=== PATIENT | female | born 1965 | race Caucasian/White ===

== ENCOUNTER 2023-03-15 10:46 | Day surgery (SDC) | payer BC, SELFPAY ==
--- NOTE | 2023-03-15 10:50 | US_ITS ---
The [address] [address] Patient Name: JOSUÉ REGALAOD MRN: [id number] date: 1965 Sex: F Assigned Patient Location: US Current Patient Location: US Accession/Order Number: [id number] Exam Date: 03/15/2023 11:04 Report Date: 03/15/2023 12:51 At the request of: KARI RIVERA Procedure: US biopsy thyroid EXAMINATION: US biopsy thyroid, US biopsy FNA add lesion HISTORY: Thyroid Nodule COMPARISON: No relevant comparison available. TECHNIQUE: After obtaining informed consent, an ultrasound-guided biopsy was performed in the usual sterile manner. FINDINGS Nodule #1: IMAGIN cm peripherally calcified right lower lobe nodule BIOPSY NEEDLE: 2 inch 25-gauge SPECIMEN TYPE, #, LOCATION: 3 fine-needle aspirates MEDICATION: 2 cc 1% buffered lidocaine COMPLICATIONS: None. LABORATORY: Pathology and cytogenetics OTHER: Negative. FINDINGS Nodule #2: IMAGIN cm right mid to lower lobe nodule BIOPSY NEEDLE: 2 inch 25-gauge SPECIMEN TYPE, #, LOCATION: 4 fine-needle aspirates MEDICATION: 2 cc 1% buffered lidocaine COMPLICATIONS: None. LABORATORY: Pathology and cytogenetics OTHER: Negative. US/US biopsy thyroid IMPRESSION: Uneventful ultrasound guided biopsy of 2 separate right thyroid nodules. The patient was instructed to obtain follow up care and biopsy results from the referring physician. Electronically authenticated by: SOFIYA LUJAN Date: 03/15/2023 12:51
[2023-03-15 11:05] VITALS: BP 138/85; PULSE 59; O2SAT 93
[2023-03-15] MEDS: LIDOCAINE HCL 10 ML, SODIUM BICARBONATE 1 MEQ INJ (11:55)
--- NOTE | 2023-03-15 12:12 | US_ITS ---
The [address] [address] Patient Name: JOSUÉ REGALADO MRN: [id number] date: 1965 Sex: F Assigned Patient Location: US Current Patient Location: US Accession/Order Number: [id number] Exam Date: 03/15/2023 11:04 Report Date: 03/15/2023 12:51 At the request of: KARI RIVERA Procedure: US biopsy FNA add lesion EXAMINATION: US biopsy thyroid, US biopsy FNA add lesion HISTORY: Thyroid Nodule COMPARISON: No relevant comparison available. TECHNIQUE: After obtaining informed consent, an ultrasound-guided biopsy was performed in the usual sterile manner. FINDINGS Nodule #1: IMAGIN cm peripherally calcified right lower lobe nodule BIOPSY NEEDLE: 2 inch 25-gauge SPECIMEN TYPE, #, LOCATION: 3 fine-needle aspirates MEDICATION: 2 cc 1% buffered lidocaine COMPLICATIONS: None. LABORATORY: Pathology and cytogenetics OTHER: Negative. FINDINGS Nodule #2: IMAGIN cm right mid to lower lobe nodule BIOPSY NEEDLE: 2 inch 25-gauge SPECIMEN TYPE, #, LOCATION: 4 fine-needle aspirates MEDICATION: 2 cc 1% buffered lidocaine COMPLICATIONS: None. LABORATORY: Pathology and cytogenetics OTHER: Negative. US/US biopsy FNA add lesion IMPRESSION: Uneventful ultrasound guided biopsy of 2 separate right thyroid nodules. The patient was instructed to obtain follow up care and biopsy results from the referring physician. Electronically authenticated by: SOFIYA LUJAN Date: 03/15/2023 12:51
== END 2023-03-15 12:20 | disposition home or self-care (01) ==
LOC: US 10:47
PROVIDERS: Radiology Diagnostic Radiology; Visit Provider Otolaryngology
DX: E04.1 Nontoxic single thyroid nodule (principal)
CPT/HCPCS: 10005; 10006; 88173